=== PATIENT | female | born 1950 | race Caucasian/White ===

== ENCOUNTER → 2017-01-11 | Outpatient (CLI) | payer MEDICARE ==
[2017-01-11] VITALS (9 sets, daily range): BP systolic 123–136; BP diastolic 68–86
[~2017-01-11] VITALS: Ht 160 cm; Wt 78.0 kg
[~2017-01-11] MED LIST: ASPI-482 PO; AZIL1TAB2 PO; CALC1TAB PO; CHOL200044 PO; CLOP75TA PO; CONTRAST GIVEN MC PRN; FENTANYL PF 100 MCG/2 ML VIAL. IV ONE; FENTANYL PF 100 MCG/2 ML VIAL. ONE; HEPARIN for IV BOLUS 10,000 UNIT/10 ML VIAL. IV ONE; HEPARIN for IV BOLUS 10,000 UNIT/10 ML VIAL. ONE; IODIXANOL 320 MG/ML 100 ML VIAL. IART ONE; IODIXANOL 320 MG/ML 100 ML VIAL. ONE; IV 1/2 NORMAL SALINE 1,000 ML IV SCH; LEVO88TA4 PO; LIDOCAINE 2% 20 ML VIAL. IJ ONE; LIDOCAINE 2% 20 ML VIAL. ONE; LOVA40TA2 PO; MIDAZOLAM HCL/PF 5 MG/5 ML VIAL IV ONE; MIDAZOLAM HCL/PF 5 MG/5 ML VIAL ONE; SERT50TA8 PO
[2017-01-11 10:38] LABS: HEMATOCRIT 39.6 % (36.0-47.0); HEMOGLOBIN 13.3 g/dL (12.0-15.5); RED BLOOD COUNT 4.43 x10^6/uL (3.50-5.40); RED CELL DISTRIBUTION WIDTH 14.3 % (11.5-14.5); WHITE BLOOD COUNT 7.2 x10^3/uL (4.0-11.0)
[2017-01-11 10:53] LABS: CALCIUM 9.4 mg/dL (8.5-10.1); CREATININE 0.8 mg/dL (0.6-1.0); GFR 71.5; POTASSIUM 3.9 mmol/L (3.5-5.1)
[2017-01-11 10:59] LABS: PROTHROMBIN TIME PATIENT 12.1 SEC (11.7-14.0)
--- NOTE | 2017-01-12 07:43 | CARD ---
APPROVED REPORT Procedure(s) performed: Left heart catheterization, coronary angiography + left ventriculogram HISTORY : The patient is a 66 year-old female with a history of . INDICATION The indication(s) include : unstable angina , Patient is a 66-year-old woman with multiple risk facto rs including hypertension and prior heavy tobacco use who presents with exertional dyspnea and chest pressure. In this setting given her high pretest probability of coronary disease she was taken to the catheterization laboratory for further evaluation. . CASE TECHNIQUE During this case, Fluoroscopy and Iso-osmolar contrast were used for imaging. PROCEDURE NARRATIVE The patient was brought electively to the cardiac catheterization lab. A timeout was performed confi rming the patient's name, date of , procedure, and site of procedure. All necessary personnel w ere wearing the appropriate protective equipment and radiation monitor devices. After explaining the risks and benefits of the procedure and alternatives, informed consent was obtained. (See nursing no travon for medications administered). The right groin was sterilely prepped and draped in the usual fas hion. The right groin was infiltrated with 10 mL of 2% lidocaine for subcutaneous anesthesia. A 6 F sheath was inserted into the right common femoral artery without difficulty. Right and left coronar y angiography was performed using standard JR4 and JL4 catheters. Left ventricular end diastolic pre ssure was obtained with a pigtail catheter and pullback was performed after left ventriculography. A ll catheter exchanges and advancements were performed over a guidewire. At case completion the right femoral sheath was removed and hemostasis was achieved with a Mynx Milton device. HEMODYNAMICS: LVEDP 20 mm Hg No gradient on LV to aortic pullback. No mitral regurgitation. LEFT VENTRICULOGRAM: EF 55% Anterobasal: Normal. Anterolateral: Normal Apical: Normal Diaphragmatic: Normal Posterobasal: Normal CORONARY ANGIOGRAPHY: LM is a large caliber vessel with normal angiographic appearance. LAD is a large caliber vessel with normal angiographic appearance and is dominant and wraps around th e apex. Ramus is a small caliber vessel with diffuse 80% stenosis. LCx is a moderate caliber dominant vessel with a proximal to mid diffuse 50% stenosis. OM1 is a moderate caliber vessel with normal angiographic appearance. LPDA is a small to moderate caliber vessel with mild luminal irregularities. RCA is a small caliber non-dominant vessel with mild luminal irregularities. INTERVENTIONAL TECHNIQUE: Patient symptoms of unstable angina, dyspnea and multiple risk factors and IFR was performed on the i ntermediate stenosis in the left circumflex. Heparin weight-based bolus dosing was used to achieve an d maintain an ACT greater than 200. Through a 6 Dutch JL4 guide catheter a 0.014 inch pressure wire was advanced to the distal left circumflex. Next and IFR was measured at 0.95. Given normal values an d no obvious evidence of ischemia further intervention was deferred. Conclusion 1. Two-vessel coronary artery disease involving the left circumflex and ramus. 2. Negative IFR of the left circumflex indicating no clinical significance of disease. Recommendations Aggressive Medical Therapy
--- NOTE | 2017-01-12 08:00 | CARD ---
APPROVED REPORT Patient StatusCLI Mechanical Design Engineer Facilities: Julio Coffman, RT (R) Procedure(s) performed: Abdominal aortogram with bilateral iliofemoral run-off HISTORY The patient is a 66 year-old female with a history of : tobacco history() : The patient is a former s moker, hypertension. INDICATION FOR PROCEDURE The indication(s) include : Bilateral claudication. PROCEDURE NARRATIVE Due to the patient's bilateral classic claudication in the lower extremities she was brought to the c atheterization laboratory to undergo a peripheral angiogram after in office limited DYLON testing revea led moderate to diffuse disease. After appropriate consent a 6 Slovak sheath was placed in the right common femoral artery under 2% lidocaine local anesthesia using a 18-gauge needle and a J-tipped guid ewire. Next, a 6 Slovak pigtail catheter was advanced to the mid abdominal aorta and digital subtract ion angiography with iliofemoral runoff abdominal aortogram was performed. Findings: Aorta: The mid to distal abdominal aorta to the common iliac bifurcation does not have any significan t disease. RCIA: No significant disease REIA: Moderate diffuse disease of up to 50% RIIA: Moderate diffuse disease of up to 50% RCFA: No significant disease. RPROF: No significant disease. RSFA: Severe diffuse disease with negative remodeling and 90% stenosis involving the mid to distal se gment. RPOP: No significant disease. Two vessel run-off to the feet with patent anterior tibial, peroneal and occluded posterior tibial pr oximally. LCIA: No significant disease. SHANTI: Suspect moderate to severe disease of up to 60% LIIA: Not well visualized. LCFA: No significant disease. LPROF: No significant disease LSFA: No significant disease LPOP: No significant disease. *Below knee vessels not well visualized due to motion artifact but there is two vessel run-off involv ing the anterior tibial and peroneal vessels. The right groin access site was closed with a Mynx Milton device. Conclusion 1. Moderate inflow disease on the right, suspect moderate to severe inflow disease on the left. 2. Severe RSFA disease. Recommendations Aggressive Medical Therapy Will start on Plavix and plan for staged PVI in lieu of high contrast load from peripheral angiogram and hearth cath today in approximately 4 weeks.
== END | disposition home or self-care (01) ==
LOC: CCL 09:28
PROVIDERS: ATTEND Internal Medicine Cardiovascular Disease
DX: I70.211 Atherosclerosis of native arteries of extremities with intermittent claudication, right leg (principal); I25.10 Atherosclerotic heart disease of native coronary artery without angina pectoris; I73.9 Peripheral vascular disease, unspecified; E78.00 Pure hypercholesterolemia, unspecified; K21.9 Gastro-esophageal reflux disease without esophagitis; Z87.898 Personal history of other specified conditions
CPT/HCPCS: 36200; 36415; 75630; 80048; 85027; 85610; 93458; 93571; C1713; C1769; C1892; G0269; J2250; J3010

== ENCOUNTER 2017-02-08 06:45 | Observation (INO) | payer MEDICARE ==
[2017-02-08] VITALS (20 sets, daily range): BP systolic 101–121; BP diastolic 54–68
[~2017-02-08] VITALS: Ht 160 cm; Wt 79.6 kg
[~2017-02-08 06:45] MED LIST changes: -CONTRAST GIVEN MC PRN; -FENTANYL PF 100 MCG/2 ML VIAL. IV ONE; -FENTANYL PF 100 MCG/2 ML VIAL. ONE; -HEPARIN for IV BOLUS 10,000 UNIT/10 ML VIAL. IV ONE; -HEPARIN for IV BOLUS 10,000 UNIT/10 ML VIAL. ONE; -IODIXANOL 320 MG/ML 100 ML VIAL. IART ONE; -IODIXANOL 320 MG/ML 100 ML VIAL. ONE; -IV 1/2 NORMAL SALINE 1,000 ML IV SCH; -LIDOCAINE 2% 20 ML VIAL. IJ ONE; -LIDOCAINE 2% 20 ML VIAL. ONE; -MIDAZOLAM HCL/PF 5 MG/5 ML VIAL IV ONE; -MIDAZOLAM HCL/PF 5 MG/5 ML VIAL ONE
[2017-02-08] MEDS ORDERED: IV NORMAL SALINE 1000ML BAG 1,000 ML IV SCH (07:00)
[2017-02-08] MEDS ORDERED: LIDOCAINE 2% 20 ML VIAL. ONE (07:06)
[2017-02-08] MEDS ORDERED: RANO500T2 PO (07:06)
[2017-02-08] MEDS ORDERED: IODIXANOL 320 MG/ML 100 ML VIAL. ONE ×2 (07:07→10:24)
[2017-02-08] MEDS ORDERED: HEPARIN for ARTERIAL LINE 1,500 ML ONE (07:07)
[2017-02-08 07:22] LABS: HEMATOCRIT 35.9 % (36.0-47.0); HEMOGLOBIN 11.8 g/dL (12.0-15.5); RED BLOOD COUNT 3.92 x10^6/uL (3.50-5.40); RED CELL DISTRIBUTION WIDTH 14.1 % (11.5-14.5); WHITE BLOOD COUNT 6.3 x10^3/uL (4.0-11.0)
[2017-02-08] MEDS ORDERED: AZIL1TAB2 PO (07:25)
[2017-02-08 07:30] LABS: PROTHROMBIN TIME PATIENT 12.2 SEC (11.7-14.0)
[2017-02-08 07:41] LABS: CALCIUM 8.8 mg/dL (8.5-10.1); GFR 55.3
[2017-02-08] MEDS ORDERED: LIDOCAINE 2% 20 ML VIAL. IJ ONE (08:00)
[2017-02-08] MEDS ORDERED: FENTANYL PF 250 MCG/5 ML VIAL. IV ONE (08:00)
[2017-02-08] MEDS ORDERED: IODIXANOL 320 MG/ML 100 ML VIAL. IART ONE (08:00)
[2017-02-08] MEDS ORDERED: NITROGLYCERIN 4 MG/20 ML SYRINGE for CATH LAB. ONE ×2 (08:00→08:12)
[2017-02-08] MEDS ORDERED: MIDAZOLAM HCL/PF 5 MG/5 ML VIAL IV ONE (08:00)
[2017-02-08] MEDS ORDERED: FENTANYL PF 250 MCG/5 ML VIAL. ONE (08:05)
[2017-02-08] MEDS ORDERED: HEPARIN for IV BOLUS 10,000 UNIT/10 ML VIAL. ONE (08:05)
[2017-02-08] MEDS ORDERED: DILTIAZEM IV PUSH 25 MG/5 ML VIAL. ONE (08:12)
[2017-02-08] MEDS ORDERED: CONTRAST GIVEN MC PRN (08:15)
[2017-02-08] MEDS ORDERED: HEPARIN for IV BOLUS 10,000 UNIT/10 ML VIAL. IART ONE (08:45)
[2017-02-08] MEDS ORDERED: DILTIAZEM IV PUSH 10 MG, NITROGLYCERIN 4MG SYRINGE 4 MG, HEPARIN S0DIUM 10,000 UNIT, VI... INT CAT ONE ×5 (09:00)
[2017-02-08] MEDS ORDERED: NITROGLYCERIN 200 MCG/2 ML SYRINGE FOR CATH/VASC LAB. IART ONE ×2 (10:00→10:45)
[2017-02-08] MEDS ORDERED: TIROFIBAN 5MG -0.9% NS 100 ML IV ONE ×2 (10:17→10:45)
[2017-02-08] MEDS ORDERED: VERAPAMIL 5 MG/2 ML VIAL. ONE (10:25)
[2017-02-08] MEDS ORDERED: VERAPAMIL 5 MG/2 ML VIAL. IART ONE (10:45)
[2017-02-08] MEDS ORDERED: HEPARIN 25,000UTS/500ML PREMIX 500 ML IV ONE (10:59)
[2017-02-08] MEDS ORDERED: TICAGRELOR 90 MG TABLET. PO ONE (11:30)
--- NOTE | 2017-02-08 14:37 | CARD ---
APPROVED REPORT Patient StatusOUT-PATIENT Mica Inspector: Caitlyn Haines RT Procedure(s) performed: Atherectomy/Stent/PARTS PROCESSOR Right SFA Stent/PARTS PROCESSOR Right External Iliac 163 Visipaque 40.9 mins Fluoro 1107.62mGy [id number] HISTORY : The patient is a 66 year-old female with a history of . INDICATION FOR PROCEDURE The indication(s) include : Bilateral claudication. PROCEDURE NARRATIVE After appropriate informed consent the patient was brought to the catheterization laboratory and laid in supine position. The bilateral groins were prepped and draped in usual sterile fashion. Arterial access was obtained with a 18-gauge needle using a J-tipped guidewire and a modified Seldinger techni que in the left common femoral artery. A 5 Danish sheath was then placed through which a 5 Danish Omn i Flush catheter was advanced to the distal abdominal aorta and digital subtraction angiography was p erformed. After confirmation of right external iliac stenosis as well as right superficial femoral ar madison stenosis and the 5 Danish sheath was removed and a 6 Danish crossover catheter was used to manip ulate a J-tipped guidewire into the right external iliac vessel and subsequently a 6 Danish Celio she ath was advanced to the right external iliac artery. Heparin weight based bolus dosing was used to a chieve and maintain an ACT > 200. Subtotally, a 0.018 inch Glidewire was used to cross the mid to di stal SFA subtotal occlusion. Next, a fine cross catheter was used to exchange the guidewire for a Vip er wire. Next, a 1.5 mm solid chasidy CSI orbital atherectomy device was used to perform 3 runs at low e nd medium power. Serial balloon angioplasty was performed with a 4.0 x 200 mm and 5.0 x 150 mm [place] balloons. Finally, a Supera of 5.0x 120 mm was deployed in the mid to distal superficial femoral art corrine and post-dilated with a 5.0/120mm balloon at 14 tahir. After placement of the stent repeat digital subtraction angiography suggested thrombus in the peronea l and anterior tibial vessels with distal no reflow. Subsequently, a command 18 wire was used to perf orm wire reperfusion of the peroneal vessel. A 3.0 by 20 mm tract balloon was also used to perform do ddering of the vessel. Multiple doses of nitroglycerin and verapamil were given and subsequently the no reflow was resolved after initiation of Tirofiban gtt. Finally attention was then turned to the right external iliac artery stenosis which was significant b y angiography and about 80% and a pullback gradient across the lesion was 80 mmHg. Therefore this les ion was balloon angioplastied with a 5.0 40 [place] balloon and then the lesion was stented with a Abs olute Pro 6x40 stent and post-dilated with the 5.0/40 mm balloon at 14 tahir. Post-PVI angiography reve aled excellent stent expansion with good outflow. The left groin sheath was sutured in place and removed via manual compression 2 hours after the proce dure. The patient received 180mg of Ticagrelor at case completion. *Please see prior report for full diagnostic angiography report. Conclusion 1. Successful PARTS PROCESSOR and stenting of the right external iliac with a Absolute pro 6.0/40 stent. 2. Successful orbital atherectomy, PARTS PROCESSOR and stent of the RSFA. 3. Distal no reflow in the peroneal resolved with medical therapy. Recommendations Aggressive Medical Therapy ASA 81mg daily Ticagrelor 90mg bid x 4 weeks, then transition to Plavix 75mg daily
[2017-02-08] MEDS: ASPIRIN ENTERIC COATED 81 MG TABLET.DR. PO SCH (18:00)
[2017-02-08] MEDS ORDERED: CLOPIDOGREL BISULFATE 75 MG TABLET PO SCH (18:00)
[2017-02-08] MEDS: RANOLAZINE 500 MG TAB.ER.12H PO SCH (20:58)
[2017-02-08] MEDS ORDERED: ATORVASTATIN CALCIUM 10 MG TABLET. PO SCH (21:00)
[2017-02-09 02:50] VITALS: BP 125/72
[2017-02-09] MEDS ORDERED: LEVOTHYROXINE 88 MCG TABLET PO SCH (07:30)
[2017-02-09 07:55] VITALS: BP 101/58
[2017-02-09] MEDS ORDERED: SERTRALINE 50 MG TABLET. PO SCH (09:00)
[2017-02-09] MEDS ORDERED: LOSARTAN POTASSIUM 25 MG TABLET. PO SCH (09:00)
[2017-02-09] MEDS ORDERED: TICAGRELOR 90 MG TABLET. PO SCH (09:00)
[2017-02-09] MEDS ORDERED: CHLORTHALIDONE 25 MG TABLET PO SCH (09:00)
[2017-02-09] MEDS: RANOLAZINE 500 MG TAB.ER.12H PO SCH (09:26)
[2017-02-09] MEDS: ASPIRIN ENTERIC COATED 81 MG TABLET.DR. PO SCH (09:28)
[2017-02-09] MEDS ORDERED: CLOP75TA PO (09:29)
[2017-02-09] MEDS ORDERED: RANO500T2 PO (09:29)
[2017-02-09] MEDS ORDERED: TICA90TA PO (09:29)
--- NOTE | 2017-02-09 09:55 | PDOC3 ---
ARACELISEBAS Bethany AREA OPERATIONS MANAGER 02/09/17 0955: Discharge Summary Visit Information Date of Admission: Feb 08, 2017 Date of Discharge: Feb 09, 2017 Admitting Diagnosis Comment: 1. PVD with bilateral claudication, R > L disease 2. CAD, 2 vessel disease without clinical significance of IFT 3. hypertension, benign essential 4. dyslipidemia Final Diagnosis Problems Medical Problems: (1) Claudication of both lower extremities Status: Acute 2. CAD, 2 vessel disease without clinical significance of IFT 3. hypertension, benign essential 4. dyslipidemia Brief Hospital Course Allergies Allergies Coded Allergies Type Severity Reaction Last Updated Verified No Known Drug Allergies 01/11/17 No Vital Signs Vital Signs Date Time Temp Pulse Resp B/P Pulse Ox O2 Delivery O2 Flow Rate FiO2 02/09/17 07:55 98.2 72 20 101/58 92 Room Air 98.2 02/08/17 11:45 4.0 Lab Results Laboratory Tests Test 02/08/17 07:15 02/08/17 08:55 02/08/17 10:40 02/08/17 13:35 White Blood Count 6.3x10^3/uL (4.0-11.0) Red Blood Count 3.92x10^6/uL (3.50-5.40) Hemoglobin 11.8g/dL (12.0-15.5) Hematocrit 35.9% (36.0-47.0) Mean Corpuscular Volume 91fL (79-100) Mean Corpuscular Hemoglobin 30pg (25-35) Mean Corpuscular Hemoglobin Concent 33g/dL (31-37) Red Cell Distribution Width 14.1% (11.5-14.5) Platelet Count 363x10^3/uL (140-400) Prothrombin Time 12.2SEC (11.7-14.0) Prothromb Time International Ratio 1.0 (0.8-1.1) Activated Partial Thromboplast Time 32SEC (24-38) Sodium Level 140mmol/L (136-145) Potassium Level 4.0mmol/L (3.5-5.1) Chloride Level 102mmol/L (98-107) Carbon Dioxide Level 25mmol/L (21-32) Anion Gap 13 (6-14) Blood Urea Nitrogen 29mg/dL (7-20) Creatinine 1.0mg/dL (0.6-1.0) Estimated GFR (Cockcroft-Gault) 55.3 Glucose Level 109mg/dL (70-99) Calcium Level 8.8mg/dL (8.5-10.1) Activated Clotting Time 230sec (92-181) 208sec (92-181) 154sec (92-181) Laboratory Tests Test 02/08/17 10:40 02/08/17 13:35 Activated Clotting Time 208sec (92-181) 154sec (92-181) Brief Hospital Course Ms. Dunn is a 66 old male with bilateral claudication R > L. Limited in office DYLON testing confirmed R > L disease. Patient initially underwent cardiac catheterization and then returned for abdominal aortogram with run-offs on 02/08/2017. See procedure report for details of right EIA METAL WIRE COATING OPERATOR and stenting and orbital atherectomy, METAL WIRE COATING OPERATOR and stent of the RSFA. Monitored overnight post- procedure without complications. Lt. FOOD TECHNOLOGY TEACHER site mildly ecchymotic and tender, but without bruit auscultated. Faintly palpable PT pulses bilaterally with 1+ DP pulses bilaterally. Discharged with 30 days of Brilinta (ticagrelor) and ASA. Holding clopidogrel while on Brilinta and then resuming when Brilinta completed. No dysrhythmias on monitor overnight. Discharge Information Condition at Discharge: Stable Follow Up: Weeks (4 weeks as scheduled on 03/11 with cardiology; follow up with PCP in 7 - 10 days) Disposition/Orders: D/C to Home Scheduled Aspirin (Aspir 81) 81 MG PO DAILY (Reported) Azilsartan Med/Chlorthalidone (Edarbyclor 40-25 Mg Tablet) 0.5 TAB PO DAILY ( Reported) Calcium Carbonate/Vitamin D3 (Caltrate 600 + D Tablet) 1 EACH PO DAILY (Reported ) Cholecalciferol (Vitamin D3) (D3-2000) 5,000 UNIT PO DAILY (Reported) Clopidogrel Bisulfate (Clopidogrel) 75 MG PO DAILY Levothyroxine Sodium (Levothyroxine Sodium) 88 MCG PO DAILYAC (Reported) Lovastatin (Lovastatin) 40 MG PO HS (Reported) Ranolazine (Ranexa) 500 MG PO BID Sertraline Hcl (Sertraline Hcl) 50 MG PO DAILY (Reported) Ticagrelor (Brilinta) 90 MG PO BID Discontinued Medications Clopidogrel Bisulfate (Clopidogrel) 75 MG PO DAILY (Reported) Ranolazine (Ranexa) 1 TAB PO BID (Reported) GABY JIMÉNEZ MD 02/09/17 1807: Discharge Summary Brief Hospital Course Brief Hospital Course Pt. seen and examined. Agree with above CLOCK AND WATCH HANDS DIPPER note. No acute events overnight. Feels better this a.m Reports that her leg is warmer today and improved pain. Meds as noted above Will f/u in 4-6 weeks. Discharge Information Scheduled Aspirin (Aspir 81) 81 MG PO DAILY (Reported) Azilsartan Med/Chlorthalidone (Edarbyclor 40-25 Mg Tablet) 0.5 TAB PO DAILY ( Reported) Calcium Carbonate/Vitamin D3 (Caltrate 600 + D Tablet) 1 EACH PO DAILY (Reported ) Cholecalciferol (Vitamin D3) (D3-2000) 5,000 UNIT PO DAILY (Reported) Clopidogrel Bisulfate (Clopidogrel) 75 MG PO DAILY Levothyroxine Sodium (Levothyroxine Sodium) 88 MCG PO DAILYAC (Reported) Lovastatin (Lovastatin) 40 MG PO HS (Reported) Ranolazine (Ranexa) 500 MG PO BID Sertraline Hcl (Sertraline Hcl) 50 MG PO DAILY (Reported) Ticagrelor (Brilinta) 90 MG PO BID Discontinued Medications Clopidogrel Bisulfate (Clopidogrel) 75 MG PO DAILY (Reported) Ranolazine (Ranexa) 1 TAB PO BID (Reported) SEBAS CHARLES APRN Feb 09, 2017 09:55 GABY JIMÉNEZ MD Feb 09, 2017 18:07
[2017-02-09 10:10] VITALS: BP 106/61
--- NOTE | 2017-02-15 15:59 | PDOC ---
Provider Note Provider Note CARDIOLOGY BRIEF H&P - late entry. Patient is a 66-year-old woman who comes into the hospital today for planned peripheral vascular intervention for right lower extremity claudication. She denies any significant changes since her last visit and continues to have lifestyle limiting claudication. She underwent a prior coronary angiogram which did not reveal any significant pathology. Past medical history notable for hypertension and dyslipidemia Social history she is a former smoker. Denies any alcohol or illicit drug use. Family history notable early arthroscopic coronary disease Allergies no known drug allergies Review of systems negative for 10 out of 14 systems reviewed unless otherwise mentioned above in history of present illness. Physical examination: Vital signs stable Head and neck unremarkable Right lower extremity cool to touch compared to left lower extremity. Normal heart tones Normal lung sounds Soft abdomen 1+ radial pulses bilaterally and 1+ femoral pulses. Diminished pedal pulses. Labs notable for hemoglobin of 11.8 and a normal creatinine Impression: 1. Right lower extremity claudication with lifestyle limiting limiting factors Plan: 1. Peripheral angioplasty plus minus stenting as necessary. Risks and benefits discussed with the patient. GABY JIMÉNEZ MD Feb 15, 2017 15:59
== END 2017-02-09 13:30 | disposition home or self-care (01) ==
LOC: CCL 06:45 → 2 NORTH 09:11
PROVIDERS: ADMIT Internal Medicine Cardiovascular Disease; ATTEND Internal Medicine Cardiovascular Disease
DX: I70.213 Atherosclerosis of native arteries of extremities with intermittent claudication, bilateral legs (principal); I73.9 Peripheral vascular disease, unspecified; I25.10 Atherosclerotic heart disease of native coronary artery without angina pectoris; E78.5 Hyperlipidemia, unspecified; Z79.02 Long term (current) use of antithrombotics/antiplatelets; Z79.82 Long term (current) use of aspirin; I10 Essential (primary) hypertension; Z87.891 Personal history of nicotine dependence; Z79.01 Long term (current) use of anticoagulants
CPT/HCPCS: 36415; 37221; 37227; 80048; 85027; 85347; 85610; 85730; 96365; 96366; 96368; 96372; 96375; C1769; C1876; C1885; C1887; C1892; G0378; G0379; J2250; J3010; J3490; J7030; J3246

== ENCOUNTER → 2017-09-08 | Outpatient (CLI) | payer MEDICARE ==
[~2017-09-08] MED LIST changes: +RANO500T2 PO; +TICA90TA PO
[2017-09-08 10:17] LABS: CHOLESTEROL/HDL RATIO 3.1
== END | disposition home or self-care (01) ==
LOC: LAB 09:42
PROVIDERS: ATTEND Internal Medicine Cardiovascular Disease
DX: I73.9 Peripheral vascular disease, unspecified (principal)
CPT/HCPCS: 36415; 80061

== ENCOUNTER → 2018-03-02 | Outpatient (CLI) | payer OTHER | END | disposition home or self-care (01) | LOC: US 09:16 | DX: I73.9 Peripheral vascular disease, unspecified (principal); I70.8 Atherosclerosis of other arteries | CPT/HCPCS: 93925 ==

== ENCOUNTER 2018-03-18 16:31 | Observation (INO) | payer OTHER ==
[2018-03-18 16:46] LABS: POC GLUCOSE 102 mg/dL (70-99)
[2018-03-18 17:13] LABS: ADD MAN DIFF? NO
[2018-03-18 17:16] LABS: BASO # 0.1 x10^3/uL (0.0-0.2); BASO % 1 % (0-3); EOS # 0.1 x10^3/uL (0.0-0.7); EOS % 2 % (0-3); HEMATOCRIT 38.8 % (36.0-47.0); HEMOGLOBIN 13.5 g/dL (12.0-15.5); LYMPH # 2.1 x10^3/uL (1.0-4.8); LYMPH % 25 % (24-48); MEAN CORPUSCULAR HEMOGLOBIN 32 pg (25-35); MEAN CORPUSCULAR HGB CONC 35 g/dL (31-37); MEAN CORPUSCULAR VOLUME 93 fL (79-100); MONO # 0.8 x10^3/uL (0.0-1.1); MONO % 9 % (0-9); NEUT # 5.3 x10^3uL (1.8-7.7); NEUT % 63 % (31-73); PLATELET COUNT 404 x10^3/uL (140-400); RED BLOOD COUNT 4.18 x10^6/uL (3.50-5.40); RED CELL DISTRIBUTION WIDTH 13.2 % (11.5-14.5); WHITE BLOOD COUNT 8.5 x10^3/uL (4.0-11.0)
[2018-03-18 17:25] LABS: PROTHROMBIN TIME PATIENT 12.2 SEC (11.7-14.0)
[2018-03-18 17:30] LABS: ANION GAP 12 (6-14); BLOOD UREA NITROGEN 26 mg/dL (7-20); BUN/CREATININE RATIO 29 (6-20); CALCIUM 8.8 mg/dL (8.5-10.1); CARBON DIOXIDE 27 mmol/L (21-32); CHLORIDE 102 mmol/L (98-107); CREATININE 0.9 mg/dL (0.6-1.0); GFR 62.3; GLUCOSE 104 mg/dL (70-99); POTASSIUM 3.9 mmol/L (3.5-5.1); SODIUM 141 mmol/L (136-145)
[2018-03-18 17:35] LABS: ALBUMIN 3.4 g/dL (3.4-5.0); ALBUMIN/GLOBULIN RATIO 0.7 (1.0-1.7); ALK PHOS 68 U/L (46-116); ALT (SGPT) 29 U/L (14-59); AST (SGOT) 19 U/L (15-37); CREATINE KINASE 143 U/L (26-192); LIPASE 108 U/L (73-393); TOTAL BILIRUBIN 0.3 mg/dL (0.2-1.0)
[2018-03-18 17:46] LABS: THYROID STIM HORMONE (TSH) 5.635 uIU/mL (0.358-3.74)
[2018-03-18 17:48] LABS: TROPONINI < 0.017 ng/mL (0.000-0.055)
[2018-03-18 17:53] LABS: CKMB INDEX 1.3 % (0-4); CKMB MASS 1.9 ng/mL (0.0-3.6); CREATINE KINASE 148 U/L (26-192)
[2018-03-18] MEDS: DIPHTH,PERTUSS(ACELL),TET TOX 0.5 ML DISP.SYRIN. VAX IM (17:56)
[2018-03-18] MEDS: HYDROcodone/APAP 5/325MG 1 TAB TABLET PO (18:30)
[2018-03-18] MEDS ORDERED: ONDANSETRON PF 4 MG/2 ML VIAL. IV (18:45)
[2018-03-18] MEDS ORDERED: MORPHINE SULFATE 4 MG/ML DISP.SYRIN. IV (18:45)
[2018-03-18 19:05] LABS: BILIRUBIN,URINE NEGATIVE (NEG); CLARITY,URINE CLEAR; COLOR,URINE YELLOW; GLUCOSE,URINE NEGATIVE (NEG); NITRITE,URINE NEGATIVE (NEG); PROTEIN,URINE NEGATIVE (NEG-TRACE); UROBILINOGEN,URINE 0.2 mg/dL (0.2 mg/dL)
[2018-03-18 19:14] LABS: BACTERIA,URINE FEW /HPF (0-FEW); RBC,URINE 0 /HPF (0-2); SQUAMOUS EPITHELIAL CELL,UR MOD /LPF; WBC,URINE 0 /HPF (0-4)
[2018-03-18] MEDS ORDERED: hydrALAZINE 20 MG/ML VIAL. IVP (20:30)
[2018-03-18] MEDS ORDERED: ZOLPIDEM 5 MG TABLET. PO (20:30)
[2018-03-18] MEDS: RANOLAZINE 500 MG TAB.ER.12H PO (21:33)
[2018-03-18] MEDS: ATORVASTATIN CALCIUM 10 MG TABLET. PO (21:33)
[2018-03-19 05:17] LABS: ADD MAN DIFF? NO
[2018-03-19 05:34] LABS: BASO # 0.1 x10^3/uL (0.0-0.2); BASO % 1 % (0-3); EOS # 0.2 x10^3/uL (0.0-0.7); EOS % 3 % (0-3); HEMATOCRIT 37.5 % (36.0-47.0); HEMOGLOBIN 12.9 g/dL (12.0-15.5); LYMPH # 2.1 x10^3/uL (1.0-4.8); LYMPH % 34 % (24-48); MEAN CORPUSCULAR HEMOGLOBIN 32 pg (25-35); MEAN CORPUSCULAR HGB CONC 34 g/dL (31-37); MEAN CORPUSCULAR VOLUME 93 fL (79-100); MONO # 0.6 x10^3/uL (0.0-1.1); MONO % 10 % (0-9); NEUT # 3.2 x10^3uL (1.8-7.7); NEUT % 53 % (31-73); PLATELET COUNT 377 x10^3/uL (140-400); RED BLOOD COUNT 4.01 x10^6/uL (3.50-5.40); RED CELL DISTRIBUTION WIDTH 13.2 % (11.5-14.5); WHITE BLOOD COUNT 6.1 x10^3/uL (4.0-11.0)
[2018-03-19 06:05] LABS: ALBUMIN 3.3 g/dL (3.4-5.0); ALBUMIN/GLOBULIN RATIO 0.9 (1.0-1.7); ALK PHOS 61 U/L (46-116); ALT (SGPT) 28 U/L (14-59); ANION GAP 9 (6-14); AST (SGOT) 19 U/L (15-37); BLOOD UREA NITROGEN 21 mg/dL (7-20); BUN/CREATININE RATIO 23 (6-20); CARBON DIOXIDE 30 mmol/L (21-32); CHLORIDE 103 mmol/L (98-107); CREATININE 0.9 mg/dL (0.6-1.0); GFR 62.3; GLUCOSE 102 mg/dL (70-99); POTASSIUM 3.9 mmol/L (3.5-5.1); SODIUM 142 mmol/L (136-145); TOTAL BILIRUBIN 0.3 mg/dL (0.2-1.0); TOTAL PROTEIN 6.8 g/dL (6.4-8.2)
[2018-03-19 06:11] LABS: TROPONINI < 0.017 ng/mL (0.000-0.055)
[2018-03-19] MEDS: LEVOTHYROXINE 88 MCG TABLET PO (06:39)
[2018-03-19] MEDS: CHOLECALCIFEROL (VITAMIN D3) 5,000 UNIT CAPSULE PO (10:50)
[2018-03-19] MEDS: ASPIRIN ENTERIC COATED 81 MG TABLET.DR. PO (10:50)
[2018-03-19] MEDS: CALCIUM CARB/VIT D3 500/200 TABLET. PO (10:51)
[2018-03-19] MEDS: SERTRALINE 50 MG TABLET. PO (10:51)
[2018-03-19] MEDS: CLOPIDOGREL BISULFATE 75 MG TABLET PO (10:51)
[2018-03-19] MEDS: RANOLAZINE 500 MG TAB.ER.12H PO ×2 (10:51→20:12)
[2018-03-19] MEDS: ACETAMINOPHEN 325 MG TABLET. PO (17:11)
[2018-03-19] MEDS: ATORVASTATIN CALCIUM 10 MG TABLET. PO (20:12)
[2018-03-20] MEDS: LEVOTHYROXINE 88 MCG TABLET PO (07:15)
[2018-03-20] MEDS: SERTRALINE 50 MG TABLET. PO (08:08)
[2018-03-20] MEDS: CHOLECALCIFEROL (VITAMIN D3) 5,000 UNIT CAPSULE PO (08:08)
[2018-03-20] MEDS: CALCIUM CARB/VIT D3 500/200 TABLET. PO (08:09)
[2018-03-20] MEDS: RANOLAZINE 500 MG TAB.ER.12H PO (08:09)
[2018-03-20] MEDS: ASPIRIN ENTERIC COATED 81 MG TABLET.DR. PO (08:10)
[2018-03-20] MEDS: CLOPIDOGREL BISULFATE 75 MG TABLET PO (08:10)
== END 2018-03-20 13:15 | disposition home or self-care (01) ==
LOC: ER 16:31 → 6 SOUTH 18:39
PROVIDERS: Internal Medicine
DX: R55 Syncope and collapse (principal); E78.5 Hyperlipidemia, unspecified; F32.9 Major depressive disorder, single episode, unspecified; I10 Essential (primary) hypertension; I25.10 Atherosclerotic heart disease of native coronary artery without angina pectoris; Z79.02 Long term (current) use of antithrombotics/antiplatelets; Z79.82 Long term (current) use of aspirin; Z82.49 Family history of ischemic heart disease and other diseases of the circulatory system; Z95.5 Presence of coronary angioplasty implant and graft; Z23 Encounter for immunization
CPT/HCPCS: 36415; 70450; 70486; 71045; 72125; 73080; 73562; 80053; 81001; 82550; 82553; 82962; 83690; 84443; 84484; 85025; 85610; 90471; 90715; 93005; 99285-25; G0378; G0379

== ENCOUNTER → 2019-06-21 | Outpatient (CLI) | payer OTHER ==
[2018-03-20 10:32] VITALS: BP 115/66
[~2019-06-21] MED LIST changes: +REGADENOSON 0.4 MG/5 ML DISP.SYRIN. IV ONE
--- NOTE | 2019-06-21 12:28 | RAD ---
MR#: [id number] Date of Study: 06/21/2019 Ordering Physician: GABY LUCERO, Referring Physician: JUDIT DELGADO Tech: Chidi Rivero RT (R) (N) APPROVED REPORT Test Type: Pharmacological Stress Nurse/Tech: Lydia Chahal R.N. Test Indications: CAD, PAD Cardiac History: CAD, PAD, stent in leg Medications: See Electronic Medical Record Medical History: See Electronic Medical Record Resting ECG: SR w/ frequent pac's Resting Heart Rate: 86 bpm Resting Blood Pressure: 139/74mmHg Pretest Chest Pain: No chest pain Nurse/Tech Notes S1S2- irregular rhythm, lungs CTA Consent: The procedure was explained to the patient in lay terms. Informed consent was witnessed. Jacinto eout was entered into [employer]. History and Stress Test performed by [facility]. Details Pharmacologic stress testing was performed using 0.4mg per 5ml of regadenoson given intravenously ove r 7-10 seconds. Stress Symptoms SOB, nausea , h/a POST EXERCISE Reason for Termination: Infusion complete Max HR: 142 bpm Max Blood Pressure: 141/72mmHg Blood Pressure response to exercise: Normal blood pressure response during stress. Heart Rate response to exercise: wnl Chest Pain: No. Arrhythmia: No. no changes from abnormal baseline ST Change: No. INTERPRETATION Stress EKG Conclusion: No evidence of stress induced ischemic findings. Imaging Protocol IMAGE PROTOCOL: Rest Tc-99m/stress Tc-99m 1 day Rest: Stress: Viability: Radiopharm.Tc99m YsqoajngqLb19m Sestamibi Wuwu74nIh 33mCi Duration 15min. 15min. Img Date 06/21/2019 06/21/2019 Inj-Img Java30mnz. 60min. Rest Admin Site:IV - Right AntecubitalAdministrator:NIKKI Ling Stress Admin Site: IV - Right AntecubitalAdministrator: NIKKI Ling STRESS DATA End Diast. Vol.44.0mlLVEDV index BSA24.0ml End Syst. Vol.6.0mlLVESV index BSA3.0ml Myocardial Mass86.0gEject. Smfuwdka83.0% Stress Scores Regional WT3.00Summed WT19.00 Regional WM0.00Summed WM0.00 The rest and stress images show normal perfusion, normal contraction and thickening. LV Perf. Quant 17 Seg. SSS3.00 17 Seg. SRS3.00 17 Seg. SDS0.00 Stress Defect Extent (% LAD)0.00Rest Defect Extent (% LAD)0.00Rev. Defect Extent (% LAD)0.00 Stress Defect Extent (% LCX) 22.50Rest Defect Extent (% LCX)30.00Rev. Defect Extent (% LCX)2.50 Stress Defect Extent (% RCA)0.00Rest Defect Extent (% RCA)0.00Rev. Defect Extent (% RCA)0.00 Stress Defect Extent (% MANDY)4.10Rest Defect Extent (% MANDY)5.20Rev. Defect Extent (% MANDY)0.40 Other Information Quality:Good Risk Assessment: Low Risk Conclusion 1. No evidence of EKG changes with stress testing. 2. Normal perfusion at stress/rest. 3. Low risk study. 4. EF > 60%. Signed by : Gaby Lucero, Electronically Approved : 06/21/2019 12:28:13
--- NOTE | 2019-06-21 14:25 | RAD ---
MR#: [id number] Date of Study: 06/21/2019 Ordering Physician: GABY JIMÉNEZ, Referring Physician: GABY JIMÉNEZ, Tech: Dana Wilder, VINCENTMS, RVT, RTR APPROVED REPORT Patient Location: OUT-PATIENT Indications PAD Fem Pop Stent 02-08-17; Numbness arms and legs Risk Factors Hypertension VELOCITY AND DOPPLER WAVEFORM ANALYSIS RIGHT cm/secWaveformSeverity LEFT cm/secWaveform Severity pCFA 198.0MonophasicpCFA 186.3Monophasic dCFA 154.2MonophasicdCFA 169.7Monophasic Prof Fem Art. 215.5MonophasicProf Fem Art. 195.4Monophasic Fem Art Prox. 164.9MonophasicFem Art Prox. 204.4Monophasic Fem Art Mid. 198.1MonophasicFem Art Mid. 151.7Monophasic Fem Art Dist. 130.1MonophasicFem Art Dist. 82.3Monophasic Pop Art(AK) 65.9MonophasicPop Art(AK) 42.1Monophasic SENIOR BUSINESS ARCHITECT Prox. 25.9MonophasicPTA Prox. 37.0Monophasic SENIOR BUSINESS ARCHITECT Dist. 15.9MonophasicPTA Dist. 15.7Monophasic Per Art Prox. 62.9MonophasicPer Art Prox. 52.6Monophasic MELY Prox. 47.4MonophasicATA Prox. 59.6Monophasic DPA 43MonophasicDPA 61Monophasic Findings Grayscale images of the bilateral lower ext arterial vessels revealed diffuse moderate atheroscleroti c plaque. Bilaterally there is likely high-grade stenosis involving the distal SFA popliteal junction. Monophas ic waveforms are noted throughout the lower extremity arterial vessels. Bilateral posterior tibial ar madison disease. Critical Notification Critical Value: No <Conclusion> 1. Probable bilateral high-grade disease involving the SFA popliteal junction 2. Bilateral posterior tibial arterial disease likely moderate to severe. Signed by : Gaby Jiménez, Electronically Approved : 06/21/2019 14:25:14
--- NOTE | 2019-06-21 14:28 | RAD ---
MR#: [id number] Date of Study: 06/21/2019 Ordering Physician: GABY JIMÉNEZ, Referring Physician: GABY JIMÉNEZ, Tech: Dana Wilder, TALIA, RVT, RTR APPROVED REPORT Patient Location: OUT-PATIENT Laterality:Bilateral Indications PAD; CAD; Numbness arms and legs; HTN; TIA's 2005 Doppler Spectral Velocity Analysis Right Left pCCA 118/14 cm/spCCA 131/25 cm/s mCCA 112/14 cm/smCCA 108/20 cm/s dCCA 90/17 cm/sdCCA 104/24 cm/s Bulb 74/14 cm/sBulb 61/15 cm/s ECA 148/18 cm/sECA 83/10 cm/s pICA 56/13 cm/spICA 63/19 cm/s Damaris 113/32 cm/smICA 90/26 cm/s dICA 124/31 cm/sdICA 101/30 cm/s Vert. 57/15 cm/sVert. 67/16 cm/s ICA/CCA 1.05ICA/CCA 0.77 Findings Grayscale images of the bilateral common carotid, external and internal carotid vessels reveal mild p laque. Spectral waveforms and color Doppler in the bilateral internal carotid arteries do not demonstrate an y evidence of high-grade stenosis. Overall 0 to less than 50% stenosis by velocity criteria. Bilateral vertebral velocities are antegrade. Critical Notification Critical Value: No <Conclusion> 1. No significant carotid occlusive disease. Signed by : Gaby Jiménez, Electronically Approved : 06/21/2019 14:27:27
== END | disposition home or self-care (01) ==
LOC: NM 08:16
PROVIDERS: ATTEND Internal Medicine Cardiovascular Disease
DX: I65.23 Occlusion and stenosis of bilateral carotid arteries (principal); I73.9 Peripheral vascular disease, unspecified; I10 Essential (primary) hypertension; Z86.73 Personal history of transient ischemic attack (TIA), and cerebral infarction without residual deficits; Z86.79 Personal history of other diseases of the circulatory system
CPT/HCPCS: 78452; 93017; 93880; 93923; A9500; J2785

== ENCOUNTER → 2019-11-24 | Day surgery (SDC) | payer OTHER, MEDICAID ==
[~2019-11-24] MED LIST changes: +FAMO40TA57 PO; +LIDOCAINE 2% PF 5 ML VIAL. ONE; +LOSA50TA15 PO; +POTA20TA4 PO; +PROPOFOL 20 ML IV ONE; -REGADENOSON 0.4 MG/5 ML DISP.SYRIN. IV ONE; +TOCI162P SQ
[2019-11-24] MEDS: IV RINGERS,LACTATED 1000ML 1,000 ML IV SCH ×2 (06:54→06:55)
[2019-11-24 08:30] VITALS: BP 156/74
--- NOTE | 2019-11-27 14:07 | PATHOLOGY ---
[facility] Accession Number: [id number] . 01 Material submitted: . esophagus - DISTAL ESOPHAGUS BIOPSY. Modifiers: distal . 01 Clinical history: . GERD . 02 Diagnosis: Esophagus, distal, biopsy: - Mildly reactive squamous mucosa. - See comment. (MAP:[facility] 11/27/2019) . [facility] 11/27/2019 1002 Local . 02 Comment: Mildly reactive squamous mucosa is present. While features of intestinal metaplasia are not identified in this biopsy specimen, there is no columnar type junctional mucosa present for evaluation. Clinical correlation is recommended. (MAP:[facility] 11/27/2019) . 02 Electronically signed: . Aaron Darnell MD, Pathologist NPI- [id number] . 01 Gross description: . Received in formalin labeled "Shaun, Myriam, distal esophagus BX," are 4 segments of gorman soft tissue measuring 0.6 x 0.5 x 0.1 cm in aggregate dimensions and ranging from 0.2 to 0.6 cm in maximum dimension. The specimen is submitted entirely in cassette A1. (TSD; 11/24/2019) TOB/TOB 11/24/2019 2218 Local . 02 Pathologist provided ICD-10: K21.9 . 02 CPT . 132958 Specimen Comment: A courtesy copy of this report has been sent to [phone] Specimen Comment: [phone], Specimen Comment: Report sent to ,DR MALONE / DR MALONE Performed at: 01 [facility] [address], [place], [place] [id number] MD Jonathan Yin MD Phone: [phone] Performed at: 02 [facility] [address] [place], [place] [id number] MD Gerson Montes MD Phone: [phone]
== END ==
LOC: ENDOS 06:04
PROVIDERS: ATTEND Internal Medicine Gastroenterology
DX: R13.10 Dysphagia, unspecified (principal); K21.0 Gastro-esophageal reflux disease with esophagitis; K22.2 Esophageal obstruction; K29.50 Unspecified chronic gastritis without bleeding; D64.9 Anemia, unspecified; F41.9 Anxiety disorder, unspecified; F32.9 Major depressive disorder, single episode, unspecified; I10 Essential (primary) hypertension; E78.00 Pure hypercholesterolemia, unspecified; E03.9 Hypothyroidism, unspecified; Z86.010 Personal history of colon polyps; Z79.82 Long term (current) use of aspirin; Z90.710 Acquired absence of both cervix and uterus; Z98.51 Tubal ligation status
CPT/HCPCS: 43239; 43450; 88305; J2001; J2704